=== PATIENT | female | born 1990 | race Caucasian/White ===

== ENCOUNTER 2024-03-09 13:15 | Emergency (ER) | payer SELFPAY ==
[2024-03-09 14:19] VITALS: BP 108/72; PULSE 87; RESP 18; TEMP 36.7; O2SAT 98; BMI 27.8
--- NOTE | 2024-03-09 15:30 | XR_ITS ---
PROCEDURE INFORMATION: Exam: XR Chest Exam date and time: 03/09/2024 3:38 PM Age: 33 years old Clinical indication: Pain; Left-sided; Additional info: L lung/neck pain after coughing TECHNIQUE: Imaging protocol: Radiologic exam of the chest. Views: 2 views. COMPARISON: No relevant prior studies available. FINDINGS: Lungs: Atelectasis or scar in the lateral aspect of the left hemithorax. No focal consolidation Pleural spaces: Unremarkable. No pleural effusion. No pneumothorax. Heart/Mediastinum: Unremarkable. No cardiomegaly. Bones/joints: Unremarkable. IMPRESSION: No focal consolidation Atelectasis in the lateral aspect of the left hemithorax.
--- NOTE | 2024-03-09 15:31 | HMH.EDGENADL ---
Discharge Plan Disposition Patient Disposition: Home, Self-Care Condition: Good Prescriptions Prescriptions: New azithromycin 500 mg tablet 500 mg PO DAILY 4 Days Qty: 4 0RF Rx Instructions: start on day 2 of therapy fluticasone propionate [Flonase Allergy Relief] 50 mcg/actuation spray,suspension 1 spray intranasal BID Qty: 16 0RF Rx Instructions: administer into each nostril cetirizine [Zyrtec] 10 mg tablet 10 mg PO DAILY Qty: 30 0RF Referrals Follow up/Referrals: Provider,Referral, [Primary Care Provider] - See instructions Activity Restrictions/Add. Instructions Additional Instructions/Restrictions: You were evaluated in the emergency department today. 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 I also recommend Tylenol and ibuprofen every 4-6 hours at home as needed for pain. Follow-up closely with your primary care provider. Return to the emergency department right away for new or worsening symptoms Clinical Impressions Clinical Impression: Acute strain of neck muscle, Sinusitis, Bronchitis Stand Alone Forms Stand Alone Forms: Work/School Release Instructions Patient Instructions: DI for Acute Bronchitis, DI for Neck Sprain, DI for Neck Pain Print Language Print Language: Turkmen Discharge ED Provider: Beryl Neil General Adult HPI General Chief complaint: Upper Respiratory Infection Stated complaint: sinus congestion cough pain L side neck pain Time Seen by Provider: 03/09/24 15:22 Mode of Arrival: Ambulatory Source of Information: Patient Limitations: No Limitations Description of Symptoms (Recalled from ER Triage Doc. by RN): PT C/O COUGH AND CONGESTION. C/O LEFT SIDED NECK PAIN AFTER COUGHING History of Present Illness HPI narrative: This patient is a 33-year-old female presenting to the emergency department for evaluation with concern for left-sided neck/shoulder pain after coughing. Patient states that she has been sick for about 2 weeks now with sinus pain, pressure, congestion, and coughing that is especially worse when she tries to sleep. She also notes that she is wheezing when she tries to sleep. She has no history of asthma. She states that what prompted her to come in today is that this morning whenever she coughed really hard she felt a pop in her left neck and now it hurts whenever she coughs or take a deep breath. Pain radiates down her left arm to her left elbow. no headache, vision changes, numbness, tingling, unilateral weakness, or other concerns. She says full range of motion of the left upper extremity with no neurovascular deficits there. Related Data Previous Rx's ?Medication ?Instructions ?Recorded azithromycin 500 mg tablet 500 mg PO DAILY 4 days #4 tabs 03/09/24 cetirizine 10 mg tablet (Zyrtec) 10 mg PO DAILY #30 tabs 03/09/24 fluticasone propionate 50 1 spray intranasal BID #16 grams 03/09/24 mcg/actuation nasal spray,suspension (Flonase Allergy Relief) Allergies Allergy/AdvReac Type Severity Reaction Status Date / Time No Known Allergies Allergy Verified 03/09/24 16:07 [facility] Disclaimer: The information contained in this section may have been updated after the patient was seen, as this information can be updated by other users. Social History Smoking Status: Current every day smoker alcohol intake: never current occupational status: employed Travel in the last 8 weeks: None ROS Obtained: Yes All systems reviewed & no additional complaints except as documented Physical Exam General General appearance: alert and in no apparent distress Head Head exam: atraumatic and normocephalic Eye Eye exam: Present normal appearance, PERRL and EOMI ENT ENT exam: Present normal exam, normal oropharynx, mucous membranes moist and normal external ear exam Neck Neck exam: Present full ROM, trachea midline, tenderness and other (Left-sided paraspinal muscle/SCM/trap hypertonicity and tenderness to palpation. No bruits. No hematoma. No significant swelling.); Absent meningismus or lymphadenopathy Chest Chest inspection: Present normal inspection and symmetric chest wall rise; Absent tenderness Respiratory Respiratory exam: Present normal lung sounds bilaterally; Absent respiratory distress, wheezes, stridor or accessory muscle use Cardiovascular Cardiovascular exam: Present regular rate and normal rhythm Abdominal Exam Abdominal exam: Present soft; Absent distention, tenderness or guarding Extremities Exam Extremities exam: Present normal inspection, full ROM, normal capillary refill and other (Full range of motion of the left upper extremity with intact neurovascular status.); Absent tenderness or edema Back Exam Back exam: Present normal inspection and full ROM; Absent tenderness Neurological Exam Neurological exam: Present alert, oriented X3, CN II-XII intact and normal gait; Absent motor sensory deficit Psychiatric Psychiatric exam: Present normal affect and normal mood Skin Skin exam: Present warm and dry Medical Decision Making Medical Records Medical records reviewed: Yes I reviewed the patient's medical records. Screening: Per USPSTF and CDC recommendations, given the prevalence of disease in our region, it is our hospital?s policy to screen for HIV and viral Hepatitis for all patients aged 18 and over and those with ongoing risk factors. Jasiel Inquiry Pt receiving controlled substance: No Vital Signs: 03/09/24 14:19 03/09/24 17:21 Temperature 98.0 F 98.2 F Temperature Source Oral Pulse Rate 83 Pulse Rate [Radial] 87 Respiratory Rate 18 20 Blood Pressure 136/77 Blood Pressure [Left Arm] 108/72 L Blood Pressure Mean [Left Arm] 84 Blood Pressure Source [Left Arm] Automatic Cuff Blood Pressure Position [Left Arm] Sitting 02 Sat by Pulse Oximetry 98 Oxygen Delivery Method Room Air Room Air Lab Data Lab results reviewed: Yes I reviewed the patient's lab results. Orders (Tests/Meds): ED MEDICATIONS Discontinued Medications Generic Name Dose Route Start Last Admin Trade Name Freq PRN Reason Stop Dose Admin Acetaminophen 1,000 mg 03/09/24 15:30 03/09/24 16:12 Acetaminophen 500mg Tab PO 03/09/24 15:31 1,000 mg ONCE ONE Administration Azithromycin 500 mg 03/09/24 15:30 03/09/24 16:12 Azithromycin 250mg Tablet PO 03/09/24 15:31 500 mg ONCE ONE Administration Ibuprofen 800 mg 03/09/24 15:30 03/09/24 16:12 Ibuprofen 400 Mg Tablet PO 03/09/24 15:31 800 mg ONCE ONE Administration Lidocaine 1 each 03/09/24 15:30 03/09/24 16:12 Lidocaine 5% Transdermal Patch TP 03/09/24 15:31 1 each ONCE ONE Administration ORDERS Category Date Time Status CXR 2 view (NOT portable) [XR chest 2V] Stat Exams 03/09/24 15:30 Completed Medical Decision Narrative: In summary, this patient is a 33-year-old female presenting to the Emergency Department for evaluation of left-sided neck pain after coughing hard. Differential diagnoses considered include but are not limited to musculoskeletal strain/sprain, pneumothorax, cervical radiculopathy. Ruling out the most morbid conditions drove assessment. On exam, the patient is very well-appearing. She is neurologically intact with no bruits, hematoma, or other vascular concerns. She is neurovascularly intact in her left upper extremity where the pain is radiating to. She does have muscle spasm and hypertonicity with tenderness to palpation of the muscles, so I feel she likely has musculoskeletal strain/sprain from coughing. Cardiopulmonary exam is normal. Workup included two-view chest x-ray. Patient states the only medicine she can take her Tylenol, ibuprofen, clindamycin, and Z-Parmjit because she is allergic to all other antibiotics and anti-inflammatories. Given that her symptoms were going on for 2 weeks as far as URI symptoms are concerned and she has some the antibiotic allergies, after shared decision-making with the patient we will prescribe azithromycin even though I would not typically prescribe this as first-line for sinusitis. Ordered her Tylenol and ibuprofen for symptomatic improvement of pain as well as Lidoderm patch. I counseled her on supportive management as an outpatient with Flonase and allergy medications. I independently interpreted chest x-ray prior to the radiologist read and noted no acute focal consolidation or pneumothorax. Please see their read for final interpretation. On reassessment, the patient is resting comfortably with reassuring exam and vitals. Ultimately, I feel she has musculoskeletal pain in the setting of URI. Given 2 weeks of symptoms and multiple antibiotic allergies as above, she was prescribed azithromycin. She is also prescribed Flonase and Zyrtec for supportive management. She was given instructions for close outpatient follow-up and strict return precautions. She was discharged after all questions were answered. Critical Care Critical Care Time Critical Care Time: No
[2024-03-09] MEDS: AZITHROMYCIN 250MG TABLET 500 MG PO (16:12)
[2024-03-09] MEDS: LIDOCAINE 5% TRANSDERMAL PATCH 1 EACH TP (16:12)
[2024-03-09] MEDS: ACETAMINOPHEN 500MG TAB 1000 MG PO (16:12)
[2024-03-09] MEDS: IBUPROFEN 400 MG TABLET 800 MG PO (16:12)
[2024-03-09 17:21] VITALS: BP 136/77; PULSE 83; RESP 20; TEMP 36.8; O2SAT 98
== END 2024-03-09 17:23 | disposition home or self-care (01) ==
PROVIDERS: Emergency Provider Emergency Medicine
DX: S16.1XXA Strain of muscle, fascia and tendon at neck level, initial encounter (principal); J01.90 Acute sinusitis, unspecified; M25.512 Pain in left shoulder; J20.9 Acute bronchitis, unspecified; F17.210 Nicotine dependence, cigarettes, uncomplicated; R05.9 Cough, unspecified
CPT/HCPCS: 71046; 99283